=== PATIENT | male | born 1980 | race Caucasian/White ===

== ENCOUNTER 2022-08-29 19:39 | Emergency (ER) | payer BC ==
[~2022-08-29] VITALS: Ht 182.8 cm; Wt 99.8 kg
[2022-08-29] MEDS ORDERED: HYDROCODONE-AC1 EAC1 PO (21:48)
[2022-08-29] MEDS ORDERED: CYCLOBENZAPRINE10 MG PO (21:48)
[2022-08-29] MEDS ORDERED: PREDNISONE20 M1 PO (21:48)
[2022-08-29] MEDS ORDERED: NORVASC5 MG PO (21:48)
== END 2022-08-29 22:05 | disposition home or self-care (01) ==
LOC: ED 19:39
DX: M54.42 Lumbago with sciatica, left side (principal); I10 Essential (primary) hypertension; G58.9 Mononeuropathy, unspecified

== ENCOUNTER 2022-09-01 11:29 | Inpatient (IN) | payer BC ==
[~2022-09-01] VITALS: Ht 182.8 cm; Wt 102.8 kg
[~2022-09-01 11:29] MED LIST: CYCLOBENZAPRINE10 MG PO; HYDROCODONE-AC1 EAC1 PO; NORVASC5 MG PO; PREDNISONE20 M1 PO
[2022-09-01 11:33] VITALS: BP 175/103
[2022-09-01 13:31] LABS: HEMATOCRIT 53.2 % (42.0-52.0); MEAN CELL VOLUME 92.5 fl (80.0-94.0); MEAN CORPUSCULAR HGB CONC 33.5 g/dl (33.0-37.0); MEAN PLATELET VOLUME 9.4 fl (9.6-12.3); PLATELET COUNT AUTOMATED 359 10*3/uL (130-400); RED BLOOD COUNT 5.75 10*6/uL (4.50-5.90); WHITE BLOOD COUNT 19.1 10*3/uL (4.8-10.8)
[2022-09-01 13:36] LABS: MANUAL DIFF REFLEX YES
[2022-09-01 13:46] LABS: ALKALINE PHOSPHATASE 54 U/L (46-116); BUN 13 mg/dl (9-23); CHLORIDE 98 mmol/L (98-107); POTASSIUM 4.2 mmol/L (3.4-5.1); SGPT/ALT 21 U/L (10-49); TOTAL PROTEIN 6.7 gm/dL (6.0-8.0)
[2022-09-01 13:52] LABS: TOTAL CELLS COUNTED 100 #CELLS
[2022-09-01 13:53] LABS: PLATELET SUFFICIENCY NORMAL (NORMAL)
[2022-09-01 18:07] VITALS: BP 140/98
[2022-09-01 18:25] VITALS: BP 167/89
[2022-09-01 20:00] VITALS: BP 158/80
[2022-09-02] VITALS: BP 159/92
[2022-09-02 06:47] LABS: MEAN CELL VOLUME 93.6 fl (80.0-94.0); MEAN CORPUSCULAR HGB 31.1 pg (27.0-31.0); MEAN CORPUSCULAR HGB CONC 33.2 g/dl (33.0-37.0); PLATELET COUNT AUTOMATED 371 10*3/uL (130-400); RED BLOOD COUNT 5.98 10*6/uL (4.50-5.90); WHITE BLOOD COUNT 22.6 10*3/uL (4.8-10.8)
[2022-09-02 06:52] LABS: MANUAL DIFF REFLEX YES
[2022-09-02 07:20] LABS: BURR CELLS FEW; PLATELET SUFFICIENCY NORMAL (NORMAL); POLYCHROMASIA SLIGHT; TOTAL CELLS COUNTED 100 #CELLS
[2022-09-02 07:25] LABS: ALKALINE PHOSPHATASE 65 U/L (46-116); BUN 19 mg/dl (9-23); CHLORIDE 98 mmol/L (98-107); CHOLESTEROL 198 mg/dL (<200); LDL CHOLESTEROL 94 mg/dL (9-159); POTASSIUM 4.1 mmol/L (3.4-5.1); SGPT/ALT 28 U/L (10-49); TOTAL PROTEIN 6.9 gm/dL (6.0-8.0); TRIGLYCERIDES 188 mg/dl (<150)
[2022-09-02 08:00] VITALS: BP 170/80
[2022-09-02 12:00] VITALS: BP 156/86
[2022-09-02] MEDS ORDERED: PERCOCET 5-3251 EACH PO (13:40)
[2022-09-02] MEDS ORDERED: METHOCARBAMOL500 M1 PO (13:50)
[2022-09-02] MEDS ORDERED: PREDNISONE50 MG PO (13:50)
[2022-09-02] MEDS ORDERED: LISINOPRIL10 M1 PO (13:50)
== END 2022-09-02 15:04 | disposition home or self-care (01) | DRG 552 ==
LOC: ED 11:29 → EDHOLD 16:09 → 4E 16:09
PROVIDERS: Internal Medicine; Physician Assistant; ADMIT Student in an Organized Health Care Education/Training Program; ATTEND Student in an Organized Health Care Education/Training Program
DX: M43.16 Spondylolisthesis, lumbar region (principal); M54.32 Sciatica, left side; D75.1 Secondary polycythemia; I10 Essential (primary) hypertension; M54.50 Low back pain, unspecified; D72.829 Elevated white blood cell count, unspecified; F17.210 Nicotine dependence, cigarettes, uncomplicated; Z71.6 Tobacco abuse counseling